=== PATIENT | male | born 1985 | race African-American/Black ===

== ENCOUNTER 2016-09-26 18:34 | Emergency (ER) | payer SELFPAY ==
[~2016-09-26] VITALS: Ht 180.3 cm; Wt 76.7 kg
[2016-09-26 18:58] VITALS: BP 113/69
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
[2016-09-26] MEDS ORDERED: ZOFRAN4 MG ORAL (20:24)
[2016-09-26] MEDS ORDERED: Acetaminophen 500mg (ES) tab ORAL ONE (20:30)
[2016-09-26 20:36] VITALS: BP_SYST 108; BP_SYST 113; BP_DIAS 69; BP_DIAS 72
--- NOTE | 2016-09-27 09:03 | Diagnostic Imaging Report ---
Indications: Pain, status post fall Technique: Spiral acquisitions obtained through the brain. Angled axial and coronal 5 x 5 mm slices were reconstructed. Total dose length product 1354 mGycm. CTDI vol(s) 70 mGy Comparison: None Findings: There is a focus of encephalomalacia in the left high parietal lobe. There is an area of skin thickening overlying this. There is also some scalp soft tissue thickening in the right occipital region. No acute intracranial hemorrhage or edema, mass effect, or midline shift. Normal size ventricles and extra-axial CSF spaces. Normal browning-white differentiation. Intact calvarium. Visualized orbits and sinuses are unremarkable. 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 Kendall The CT scanner at [facility] is accredited by the [employer] and the scans are performed using protocols designed to limit radiation exposure to as low as reasonably achievable to attain images of sufficient resolution adequate for diagnostic evaluation.
== END 2016-09-26 20:37 | disposition home or self-care (01) ==
LOC: EMR 19:30
DX: S09.90XA Unspecified injury of head, initial encounter (principal); S00.03XA Contusion of scalp, initial encounter; I10 Essential (primary) hypertension; J45.909 Unspecified asthma, uncomplicated; Z91.018 Allergy to other foods; W18.30XA Fall on same level, unspecified, initial encounter; Y92.9 Unspecified place or not applicable; Y99.8 Other external cause status
CPT/HCPCS: 70450; 99284